=== PATIENT | female | born 1975 | race African-American/Black ===

== ENCOUNTER 2019-08-27 07:01 | Emergency (ER) | payer BC | END 2019-08-27 08:16 | disposition home or self-care (01) | LOC: ERS 07:01 | DX: H92.02 Otalgia, left ear (principal); F17.200 Nicotine dependence, unspecified, uncomplicated | CPT/HCPCS: 99282 ==

== ENCOUNTER 2019-10-10 07:26 | Emergency (ER) | payer BC, SELFPAY | END 2019-10-10 08:50 | disposition home or self-care (01) | LOC: ERS 07:26 | DX: H93.8X2 Other specified disorders of left ear (principal); F17.200 Nicotine dependence, unspecified, uncomplicated | CPT/HCPCS: 10060 ==

== ENCOUNTER 2022-09-28 08:42 | Emergency (ER) | payer OTHER, SELFPAY ==
[2022-09-28] MEDS ORDERED: Ketorolac Tromethamine 30 MG/ML VIAL ONE (09:39)
== END 2022-09-28 09:54 | disposition home or self-care (01) ==
LOC: ERS 08:42
DX: M25.511 Pain in right shoulder (principal); F17.200 Nicotine dependence, unspecified, uncomplicated; X50.0XXA Overexertion from strenuous movement or load, initial encounter; Y92.69 Other specified industrial and construction area as the place of occurrence of the external cause
CPT/HCPCS: 96372; J1885